=== PATIENT | female | born 1990 | race Caucasian/White ===

== ENCOUNTER 2018-04-27 10:54 | Emergency (ER) | payer MEDICAID ==
[2018-04-27] MEDS ORDERED: ACETAMINOPHEN 500 MG TAB PO (11:34)
[2018-04-27] MEDS ORDERED: DIPHENHYDRAMINE 50 MG INJ IM (12:00)
== END 2018-04-27 12:05 | disposition home or self-care (01) ==
LOC: FTE 12:05
DX: O99.89 Other specified diseases and conditions complicating pregnancy, childbirth and the puerperium (principal); R51 Headache; L29.9 Pruritus, unspecified; O99.713 Diseases of the skin and subcutaneous tissue complicating pregnancy, third trimester; Z3A.31 31 weeks gestation of pregnancy
CPT/HCPCS: 99282; Z7502

== ENCOUNTER 2018-04-27 12:06 | Outpatient (CLI) | payer MEDICAID ==
[2018-04-27 14:15] LABS: ADD MAN DIFF? NO
[2018-04-27 14:17] LABS: BASOPHILS % 0.4 % (0.0-2.0); EOSINOPHILS # 0.1 10^3/ul (0.0-0.5); EOSINOPHILS % 1.6 % (0.0-7.0); HEMATOCRIT 37.9 % (37.0-47.0); HEMOGLOBIN 12.5 g/dl (12.0-16.0); LYMPHOCYTES # 1.4 10^3/ul (0.8-2.9); LYMPHOCYTES % 20.8 % (15.0-51.0); MEAN CORPUSCULAR HEMOGLOBIN 29.6 pg (29.0-33.0); MEAN CORPUSCULAR VOLUME 89.6 fl (82.0-101.0); MONOCYTE # 0.3 10^3/ul (0.3-0.9); MONOCYTES % 4.3 % (0.0-11.0); NEUTROPHILS % 72.2 % (39.0-77.0); PLATELET COUNT 242 10^3/UL (140-415); RED BLOOD COUNT 4.23 10^6/ul (4.20-5.40); RED CELL DISTRIBUTION WIDTH 12.2 % (11.5-14.5)
[2018-04-27 14:17] LABS: WHITE BLOOD COUNT 6.9 10^3/ul (4.8-10.8)
[2018-04-27 14:37] LABS: ALANINE AMINOTRANSFERASE 25 IU/L (13-69); ALBUMIN 3.4 g/dl (3.3-4.9); ALBUMIN/GLOBULIN RATIO 0.97; ALKALINE PHOSPHATASE 212 IU/L (42-121); AMYLASE 86 U/L (11-123); ANION GAP 8 (5-13); ASPARTATE AMINO TRANSFERASE 31 IU/L (15-46); BILIRUBIN,INDIRECT 0.7 mg/dl (0-1.1); BILIRUBIN,TOTAL 0.7 mg/dl (0.2-1.3); BLOOD UREA NITROGEN 6 mg/dl (7-20); CALCIUM 9.1 mg/dl (8.4-10.2); CARBON DIOXIDE 23 mmol/L (21-31); CHLORIDE 106 mmol/L (97-110); CREATININE 0.52 mg/dl (0.44-1.00); Estimated GFR > 60 mL/min (>60); GLUCOSE 73 mg/dl (70-220); LIPASE 71 U/L (23-300); POTASSIUM 3.8 mmol/L (3.5-5.1); SODIUM 137 mmol/L (135-144); TOTAL PROTEIN 6.9 g/dl (6.1-8.1)
[2018-04-30 12:41] LABS: CHENODEOXYCHOLIC ACID <0.5 umol/L (< OR = 3.1); CHOLIC ACID 0.8 umol/L (< OR = 1.8); DEOXYCHOLIC ACID <0.5 umol/L (< OR = 2.4); TOTAL BILE ACIDS <1.5 umol/L (< OR = 6.8)
== END 2018-04-27 17:17 | disposition home or self-care (01) ==
LOC: OBT 12:06 → L-D 12:19 → OBT 17:17
DX: R51 Headache (principal)
CPT/HCPCS: 36415; 76815; 76818; 80053; 80076; 82150; 83690; 83789; 85025

== ENCOUNTER 2018-04-28 12:32 | Emergency (ER) | payer MEDICAID ==
[2018-04-28] MEDS: DIPHENHYDRAMINE 50 MG INJ IM (13:10)
[2018-04-28] MEDS: ACETAMINOPHEN 500 MG TAB PO (13:10)
[2018-04-28 13:29] LABS: ADD UMIC NO; UR ASCORBIC ACID 20 mg/dL (NEGATIVE); UR BACTERIA FEW /HPF (NONE SEEN); UR BILIRUBIN (Dip) NEGATIVE (NEGATIVE); UR BLOOD (Dip) NEGATIVE (NEGATIVE); UR CLARITY SLIGHTLY CLOUDY (CLEAR); UR COLOR YELLOW (YELLOW); UR GLUCOSE (Dip) NEGATIVE (NEGATIVE); UR KETONES (Dip) NEGATIVE (NEGATIVE); UR LEUKOCYTE ESTERASE (Dip) NEGATIVE Leu/ul (NEGATIVE); UR MUCUS FEW /HPF (NONE SEEN); UR NITRITE (Dip) NEGATIVE (NEGATIVE); UR RBC 0 /HPF (0-5); UR SPECIFIC GRAVITY (Dip) 1.019 (1.003-1.030); UR SQUAMOUS EPITHELIAL CELL FEW /HPF (FEW); UR TOTAL PROTEIN (Dip) NEGATIVE (NEGATIVE); UR UROBILINOGEN (Dip) 1+ mg/dL (NEGATIVE); UR WBC 1 /HPF (0-5)
== END 2018-04-28 14:00 | disposition home or self-care (01) ==
LOC: FTE 12:32
DX: O26.893 Other specified pregnancy related conditions, third trimester (principal); R51 Headache; Z3A.34 34 weeks gestation of pregnancy
CPT/HCPCS: 81001; 81003; 96372; 99284-25

== ENCOUNTER 2018-06-09 18:24 | Inpatient (IN) | payer MEDICAID ==
[2018-06-09] MEDS: LACTATED RINGER'S 1,000 ML IV (20:21)
[2018-06-09] MEDS ORDERED: MISOPROSTOL 50 MCG CAPSULE VAG (20:30)
[2018-06-09] MEDS ORDERED: BUTORPHANOL 2 MG INJ IV (20:30)
[2018-06-09] MEDS ORDERED: IBUPROFEN 600 MG TAB PO (20:30)
[2018-06-09] MEDS ORDERED: LIDOCAINE 1% (MPF) 30 ML INJ INJ (20:30)
[2018-06-09] MEDS ORDERED: CARBOPROST 250 MCG INJ IM (20:30)
[2018-06-09 22:00] LABS: ADD MAN DIFF? NO
[2018-06-09] MEDS: MISOPROSTOL 50 MCG CAPSULE PO (22:00)
[2018-06-09 22:10] LABS: WHITE BLOOD COUNT 6.2 10^3/ul (4.8-10.8)
[2018-06-09 22:10] LABS: ABNORMAL IP MESSAGE 1; BASOPHILS % 0.5 % (0.0-2.0); EOSINOPHILS # 0.1 10^3/ul (0.0-0.5); EOSINOPHILS % 1.4 % (0.0-7.0); HEMATOCRIT 36.1 % (37.0-47.0); HEMOGLOBIN 11.8 g/dl (12.0-16.0); LYMPHOCYTES # 1.6 10^3/ul (0.8-2.9); LYMPHOCYTES % 25.2 % (15.0-51.0); MEAN CORPUSCULAR HEMOGLOBIN 29.1 pg (29.0-33.0); MEAN CORPUSCULAR HGB CONC 32.7 g/dl (32.0-37.0); MEAN CORPUSCULAR VOLUME 89.1 fl (82.0-101.0); MEAN PLATELET VOLUME 13.1 fl (7.4-10.4); MONOCYTE # 0.3 10^3/ul (0.3-0.9); NEUTROPHIL # 4.2 10^3/ul (1.6-7.5); NEUTROPHILS % 68.1 % (39.0-77.0); PLATELET COUNT 195 10^3/UL (140-415); RED BLOOD COUNT 4.05 10^6/ul (4.20-5.40); RED CELL DISTRIBUTION WIDTH 13.2 % (11.5-14.5)
[2018-06-09 22:28] LABS: POSITIVE DIFF @See below
[2018-06-09 22:34] LABS: INR 0.85; PROTIME 11.7 Sec (11.9-14.9); PT RATIO 0.9
[2018-06-09 22:35] LABS: PARTIAL THROMBOPLASTIN TIME 29.9 Sec (23.0-35.0)
[2018-06-10] MEDS: LACTATED RINGER'S 1,000 ML IV ×4 (03:35→20:02)
[2018-06-10] MEDS: MISOPROSTOL 50 MCG CAPSULE PO (07:22)
[2018-06-10] MEDS ORDERED: NALBUPHINE HCL (10 MG/1 ML) INJ IV (12:00)
[2018-06-10] MEDS ORDERED: ZOLPIDEM 5 MG TAB PO ×2 (12:00→15:00)
[2018-06-10] MEDS ORDERED: HYDROCODONE/APAP (5/325) TAB PO (12:00)
[2018-06-10] MEDS ORDERED: HYDROmorphONE 0.5 MG/0.5 ML SYG IV ×2 (12:00)
[2018-06-10] MEDS ORDERED: KETOROLAC 30 MG INJ IV (12:00)
[2018-06-10] MEDS ORDERED: NALOXONE (0.4 MG/ML) INJ IV (12:00)
[2018-06-10] MEDS ORDERED: ONDANSETRON 4 MG INJ IV ×2 (12:00→15:00)
[2018-06-10] MEDS ORDERED: FENTAnyl 2MCG/ML-ROPIV 0.2% 100 ML BAG EPI (12:00)
[2018-06-10] MEDS ORDERED: FENTAnyl 2MCG/ML-ROPIV 0.2% 100 ML (12:18)
[2018-06-10] MEDS: OXYTOCIN 30 UNITS/LR 500 ML IV ×4 (14:18→19:07)
[2018-06-10] MEDS ORDERED: METHYLERGONOVINE 0.2 MG INJ IM (15:00)
[2018-06-10] MEDS ORDERED: OXYTOCIN 30 UNITS/LR 500 ML IV (15:00)
[2018-06-10] MEDS ORDERED: OXYCODONE/ASPIRIN (4.88/325) TAB PO (15:00)
[2018-06-10] MEDS ORDERED: MISOPROSTOL 200 MCG TAB PR (15:00)
[2018-06-10] MEDS ORDERED: CARBOPROST 250 MCG INJ IM (15:00)
[2018-06-10] MEDS ORDERED: DIPHENHYDRAMINE 50 MG INJ IV (15:00)
[2018-06-10] MEDS ORDERED: DIBUCAINE 1% 30 GM OINT TOP (15:00)
[2018-06-10] MEDS: METHYLERGONOVINE 0.2 MG INJ IM (16:00)
[2018-06-10] MEDS: MISOPROSTOL 200 MCG TAB PR ×2 (16:01→16:02)
[2018-06-10 16:42] LABS: RAPID PLASMA REAGIN NONREACTIVE (NR)
[2018-06-10] MEDS: IBUPROFEN 600 MG TAB PO (20:03)
[2018-06-10] MEDS: DEXTROSE 5%-LR 1,000 ML IV ×2 (20:48→22:49)
[2018-06-10] MEDS: LACTATED RINGER'S 1,000 ML IV* ×3 (20:48→23:08)
[2018-06-10] MEDS ORDERED: hydrOXYzine HCL 10 MG TAB GTB (21:00)
[2018-06-10] MEDS: URSODIOL 300 MG CAP PO (21:47)
[2018-06-10] MEDS: WITCH HAZEL/GLYCERIN PAD PR (21:47)
[2018-06-10] MEDS: BENZOCAINE 20% 56 ML SPRAY TOP (21:47)
[2018-06-10] MEDS: ACETAMINOPHEN 325 MG TAB PO (23:28)
[2018-06-11] MEDS: IBUPROFEN 600 MG TAB PO ×4 (01:38→17:27)
[2018-06-11] MEDS: DEXTROSE 5%-LR 1,000 ML IV ×2 (06:49→14:49)
[2018-06-11 08:14] LABS: ADD MAN DIFF? NO
[2018-06-11 08:27] LABS: BASOPHILS % 0.2 % (0.0-2.0); EOSINOPHILS # 0.1 10^3/ul (0.0-0.5); EOSINOPHILS % 0.6 % (0.0-7.0); HEMATOCRIT 29.2 % (37.0-47.0); HEMOGLOBIN 9.5 g/dl (12.0-16.0); LYMPHOCYTES # 1.6 10^3/ul (0.8-2.9); LYMPHOCYTES % 19.9 % (15.0-51.0); MEAN CORPUSCULAR HEMOGLOBIN 29.5 pg (29.0-33.0); MEAN CORPUSCULAR HGB CONC 32.5 g/dl (32.0-37.0); MEAN CORPUSCULAR VOLUME 90.7 fl (82.0-101.0); MEAN PLATELET VOLUME 12.6 fl (7.4-10.4); MONOCYTE # 0.5 10^3/ul (0.3-0.9); MONOCYTES % 5.5 % (0.0-11.0); NEUTROPHILS % 72.8 % (39.0-77.0); PLATELET COUNT 146 10^3/UL (140-415); RED BLOOD COUNT 3.22 10^6/ul (4.20-5.40); RED CELL DISTRIBUTION WIDTH 13.2 % (11.5-14.5)
[2018-06-11 08:27] LABS: WHITE BLOOD COUNT 8.2 10^3/ul (4.8-10.8)
[2018-06-11] MEDS: URSODIOL 300 MG CAP PO ×3 (09:06→21:26)
[2018-06-11] MEDS: LACTATED RINGER'S 1,000 ML IV* (14:49)
[2018-06-12] MEDS: IBUPROFEN 600 MG TAB PO ×3 (05:35→12:20)
[2018-06-12] MEDS: WITCH HAZEL/GLYCERIN PAD PR ×2 (05:35→13:48)
[2018-06-12] MEDS: MEASLES,MUMPS,RUBELLA VACCINE INJ SC* (09:00)
[2018-06-12] MEDS: SENNA/DOCUSATE NA (8.6MG/50MG) TAB PO (09:19)
[2018-06-12] MEDS: URSODIOL 300 MG CAP PO ×2 (09:19→12:20)
[2018-06-12] MEDS: LANOLIN HPA 1 PKT TOP (09:21)
[2018-06-12] MEDS: DIPHTH/TET/ACEL PERTUSS (ADULT) 0.5 ML VIAL IM* (13:43)
[2018-06-12] MEDS: BENZOCAINE 20% 56 ML SPRAY TOP (13:48)
== END 2018-06-12 14:30 | disposition home or self-care (01) | DRG 805 ==
LOC: PP1 06-10 20:10 → L-D 18:24
PROVIDERS: Obstetrics & Gynecology
PROC: 10E0XZZ Delivery of Products of Conception, External Approach (ICD-10-PCS; principal; 2018-06-10)
PROC: 0HQ9XZZ Repair Perineum Skin, External Approach (ICD-10-PCS; 2018-06-10)
PROC: 3E0P7VZ Introduction of Hormone into Female Reproductive, Via Natural or Artificial Opening (ICD-10-PCS; 2018-06-10)
DX: O26.62 Liver and biliary tract disorders in childbirth (principal); K83.1 Obstruction of bile duct; Z37.0 Single live birth; O70.0 First degree perineal laceration during delivery; O90.81 Anemia of the puerperium; D64.9 Anemia, unspecified; Z3A.38 38 weeks gestation of pregnancy; Z23 Encounter for immunization
CPT/HCPCS: 62319; 85025; 85610; 85730; 86592; 86850; 86900; 86901; 90715